=== PATIENT | male | born 1975 | race Caucasian/White ===

== ENCOUNTER 2017-06-01 12:45 | Day surgery (SDC) | END 2017-06-01 19:29 | disposition home or self-care (01) ==

== ENCOUNTER 2017-08-30 11:30 | Day surgery (SDC) | END 2017-08-30 14:34 | disposition home or self-care (01) ==

== ENCOUNTER 2018-08-07 12:03 | Day surgery (SDC) | payer OTHER ==
[~2018-08-07] VITALS: Ht 175.3 cm; Wt 97.7 kg
[~2018-08-07 12:03] MED LIST: METF500T24 PO; SIMV20TA2 PO; aspirin
[2018-08-07] MEDS ORDERED: POLY17PO6 PO (13:03)
[2018-08-07] MEDS ORDERED: HYOS0.1274 PO (13:03)
[2018-08-07] MEDS ORDERED: METF-849 PO (13:03)
[2018-08-07] MEDS ORDERED: ASPI-903 PO (13:03)
[2018-08-07] MEDS ORDERED: SUCR1TAB56 PO (13:03)
[2018-08-07] MEDS ORDERED: OMEP40CA6 PO (13:03)
[2018-08-07] MEDS ORDERED: SIMV20TA2 PO (13:03)
[2018-08-07 13:10] VITALS: Ht 175.3 cm; Wt 97.7 kg
[2018-08-07] MEDS ORDERED: PROPOFOL 40 ML ONE (13:43)
[2018-08-07] MEDS ORDERED: FENTAnyl 50 MCG/ML VIAL ONE (13:43)
[2018-08-07] MEDS ORDERED: LIDOCAINE 100 MG SYRINGE ONE (13:43)
--- NOTE | 2018-08-07 13:48 | PREAC ---
Date/Time of Note Date/Time of Note DATE: 08/07/18 TIME: 13:47 Anesthesia Eval and Record Evaluation Time Pre-Procedure Interview DATE: 08/07/18 TIME: 13:47 Age 43 Sex male NPO: 8 hrs Preoperative diagnosis EPIGASTRIC PAIN Planned procedure EGD WITH BIOPSIES Past Medical History Past Medical History: Includes Cardio: HTN Endo: Diabetes Neuro: CVA Musculoskeletal: Other Surgery & Anesthesia Issues No known issue Meds Anticoagulation: No Beta Maritza within 24 hr: No Reason Beta Maritza not given: Pt. not on B-Maritza Reported Medications Simvastatin (Simvastatin) 20 Mg Tablet, 20 MG PO DAILY, #30 TAB 08/07/18 Metformin* (Glucophage*) 500 Mg Tab, 500 MG PO WITH MEALS, #90 TAB 08/07/18 Aspirin* (Aspirin* Chew) 81 Mg Tab.chew, 81 MG PO DAILY, TAB.CHEW 08/07/18 Polyethylene Glycol* (Miralax*) 17 Gm Powd.pack, 17 GM PO DAILY, #30 PACKET 08/07/18 Hyoscyamine Sulfate* (Levsin*) 0.125 Mg Tablet, 0.125 MG PO Q4H PRN for GASTROINTESTINAL UPSET, TAB 08/07/18 Omeprazole* (Omeprazole*) 40 Mg Capsule.dr, 40 MG PO DAILY, #30 CAP 08/07/18 Sucralfate* (Carafate*) 1 Gm Tab, 1 GM PO AC MEALS AND BEDTIME, TAB 08/07/18 Discontinued Reported Medications [aspirin] No Conflict Check 08/30/17 Simvastatin (Simvastatin) 20 Mg Tablet, 20 MG PO HS, TAB 05/21/14 Metformin Hcl* (Metformin Hcl*) 500 Mg Tablet, 500 MG PO BID, TAB 05/21/14 Meds reviewed: Yes Allergies Coded Allergies: No Known Allergy (Unverified , 05/21/14) Allergies Reviewed: Yes Labs/Studies Labs Reviewed: Reviewed by anesthesiologist test: N/A Pre-procedure Exam Airway: Adequate mouth opening, Adequate thyromental dist Mallampati: Mallampati II Teeth: Normal Lung: Normal Heart: Normal ASA Physical Status ASA physical status: 3 Emergency: None Planned Anesthetic General/MAC: MAC Planned Pain Management Parenteral pain med Pre-operative Attestations Prior to commencing anesthesia and surgery, the patient was re-evaluated, there was verification of: *The patient's identity *The results of appropriate recent lab work and preoperative vital signs *The above evaluation not changing prior to induction *Anesthetic plan, risk benefits, alternative and complications discussed with patient/family; questions answered; patient/family understands, accepts and wishes to proceed. Pranav Mckinnon M.D. August 07, 2018 13:48
[2018-08-07] MEDS ORDERED: ONDANSETRON 4 MG INJ IV PRN (14:00)
[2018-08-07] MEDS ORDERED: DIPHENHYDRAMINE 50 MG INJ IV PRN (14:00)
[2018-08-07] MEDS ORDERED: MEPERIDINE 25 MG INJ IV PRN (14:00)
[2018-08-07] MEDS ORDERED: LABETALOL HCL 20MG INJ IV PRN (14:00)
[2018-08-07] MEDS ORDERED: TRIMETHOBENZAMIDE 100 MG/ML VIAL IM PRN (14:00)
[2018-08-07] MEDS ORDERED: FENTAnyl 50 MCG/ML VIAL IV PRN ×3 (14:00)
[2018-08-07] MEDS ORDERED: ALBUTEROL 0.083% (NEB) 2.5 MG/3 ML AMP HHN PRN (14:00)
[2018-08-07] MEDS ORDERED: HYDROmorphONE 1 MG/5 ML IV SYRINGE IV PRN ×3 (14:00)
[2018-08-07] MEDS ORDERED: OXYCODONE/ACETAMINOPHEN (5/325) TAB PO PRN ×2 (14:00)
[2018-08-07] MEDS ORDERED: MIDAZOLAM 1 MG/ML 2 ML INJ IV PRN (14:00)
[2018-08-07] MEDS ORDERED: IPRATROPIUM (NEB) 0.5 MG/2.5 ML AMP HHN PRN (14:00)
[2018-08-07] MEDS ORDERED: EPHEDrine SULFATE 50 MG/5 ML SYG IV PRN (14:00)
[2018-08-07] MEDS ORDERED: hydrALAzine 20 MG INJ IV PRN (14:00)
[2018-08-07 14:04] VITALS: BP 128/75; PULSE 60; RESP 17
--- NOTE | 2018-08-07 14:06 | PAC ---
Date/Time of Note Date/Time of Note DATE: 08/07/18 TIME: 14:06 Post-Anesthesia Notes Post-Anesthesia Note Last documented vital signs HR:75 RR;14 BP;117/65 T:98 Activity: WNL Respiratory function: WNL Cardiovascular function: WNL Mental status: Baseline Pain reasonably controlled: Yes Hydration appropriate: Yes Nausea/Vomiting absent: Yes Pranav Mckinnon M.D. August 07, 2018 14:06
[2018-08-07 14:09] VITALS: BP 111/64; PULSE 62; RESP 18
[2018-08-07 14:34] VITALS: BP 113/73; PULSE 57; RESP 16
[2018-08-07 14:52] VITALS: BP 101/63; PULSE 68; RESP 18
== END 2018-08-07 15:55 | disposition home or self-care (01) ==
LOC: GIL 12:03
PROVIDERS: ATTEND Internal Medicine Gastroenterology
DX: K29.30 Chronic superficial gastritis without bleeding (principal); I10 Essential (primary) hypertension; E11.9 Type 2 diabetes mellitus without complications; Z86.73 Personal history of transient ischemic attack (TIA), and cerebral infarction without residual deficits; Z79.84 Long term (current) use of oral hypoglycemic drugs
CPT/HCPCS: 43239; 82962; 88305; 88312; J2001; J3010; Z7610